=== PATIENT | male | born 1985 | race Caucasian/White ===

== ENCOUNTER 2020-03-12 22:22 | Emergency (ER) | payer SELFPAY ==
[~2020-03-12] VITALS: Ht 167.6 cm; Wt 68.0 kg
[2020-03-12 22:22] VITALS: BP 126/80
--- NOTE | 2020-03-12 22:29 | NUR ---
PT TAKEN TO BED 2
--- NOTE | 2020-03-12 22:30 | NUR ---
34 Y/O MALE BIBA. PT IS [place] SPEAKING ONLY. PER [facility] STATED PT HAD PASSED OUT FROM POSSIBLE OD. UPON ARRIVAL TO HOME PT WAS SITTING ON COUCH, AND ADMITTED TO INGESTING A BOTTLE OF NYQUIL, LISTERINE, AND A BOSTON, AND SMOKED MARIJUANA. UPON ARRIVAL TO ER PT IS A&O X4 BUT ACTING INAPPROPRIATE, AND REFUSING TO ANSWER QUESTIONS, AND URINATED ON [facility]S GURNEY WHEN ASKED FOR A URINE SPECIMEN. PT THEN STATED HE WAS READY TO GO HOME. PT AMBULATED TO RESTROOM WITH STEADY GAIT, DENIED URINE SAMPLE REQUEST AGAIN. BILATERAL PUPILS DILATED, FIXED, AND NON REACTIVE. VSS, R/R EQUAL, AND UNLABORED. SIDE RAIL X1 BED IN LOW POSITION. WILL CONTINUE TO MONITOR. DENIES H NKDA
--- NOTE | 2020-03-12 23:35 | NUR ---
Dr. Villela examining patient.
[2020-03-12] MEDS ORDERED: ONDANSETRON 4 MG ODT PO ONE (23:45)
[2020-03-12 23:52] VITALS: BP 126/80
--- NOTE | 2020-03-13 00:12 | NUR ---
ISIDRO ANITA AYON [phone] CAME TO [facility]. PT AMBULATED TO CAR WITH STEADY GAIT. AAO X4. VSS.
== END 2020-03-12 22:29 | disposition home or self-care (01) ==
LOC: MED 22:22
DX: F10.129 Alcohol abuse with intoxication, unspecified (principal); R11.0 Nausea; F17.210 Nicotine dependence, cigarettes, uncomplicated; F12.90 Cannabis use, unspecified, uncomplicated
CPT/HCPCS: 99283; Q0162